=== PATIENT | female | born 1940 | race African-American/Black ===

== ENCOUNTER 2018-06-04 20:27 | Inpatient (IN) | payer MEDICARE ==
--- NOTE | 2018-06-04 21:15 | RAD ---
RADIOGRAPH CHEST 1 VIEW: 06/04/18 HISTORY: 77-year-old female with cough. FINDINGS: There are no air space densities, pulmonary edema, pneumothorax, or cardiomegaly. The lateral costop hrenic angles are sharp. IMPRESSION: No acute cardiopulmonary findings. david [] POS: MANNY
[2018-06-04 21:21] LABS: Bilirubin Negative (Negative); Blood, Urine Negative (Negative); Clarity CLEAR (Clear); Glucose, Urine (Dipstick) Negative (Negative); Leukocyte Small (Negative); Nitrite Negative (Negative); Protein, Urine (Dipstick) 100 mg/dL (Neg-Trace); Specific Gravity, Urine 1.019 (1.002-1.036); pH, Urine 6.5 (5.0-9.0)
[2018-06-04 21:24] LABS: Bacteria/HPF None Seen HPF (None Seen); RBC/HPF 0-3 HPF (0-3); WBC/HPF 0-3 HPF (0-3)
[2018-06-04 21:26] LABS: Pathc Cast-AUWi Flag 3.48 (0-2.49)
[2018-06-04 21:37] LABS: #Eosinphils 0.1 thou/uL (0.0-0.7); #Lymphocytes 1.1 thou/uL (1.20-3.40); #Monocytes 0.4 thou/uL (0.11-0.59); #Neutrophils 4.9 thou/uL (1.40-6.50); %Basophils 0.4 % (0.0-1.0); %Eosinophils 1.4 % (0.0-10.0); %Lymphocytes 16.9 % (21.0-51.0); %Monocytes 6.7 % (0.0-10.0); %Neutrophils 74.6 % (42.0-75.0); Hemoglobin 10.4 g/dL (12.0-16.0); Mean Corpuscular HGB CONC 32.5 g/dL (32.0-36.0); Mean Corpuscular Hemoglobin 31.1 pg (27.0-31.0); Mean Corpuscular Volume 95.7 fL (78.0-98.0); Mean Platelet Volume 10.8 fL (7.4-10.4); Platelet Count 168 thou/uL (130-400); RBC Distribution Width 12.6 % (11.5-14.5); Red Blood Cell (RBC) Count 3.33 mill/uL (4.20-5.40); White Blood Cell (WBC) Count 6.5 thou/uL (4.8-10.8)
[2018-06-04 21:59] LABS: INR-International Normal Ratio 1.2; PTT 28.9 SEC (22.9-36.1); Prothrombin Time 14.9 SEC (12.0-14.7)
[2018-06-04 22:00] LABS: ALT (SGPT) 8 U/L (8-55); AST (SGOT) 12 U/L (5-34); Albumin 3.5 g/dL (3.4-4.8); Alkaline Phosphatase 69 U/L (40-150); Anion Gap 15 mmol/L (10-20); BUN (Urea Nitrogen) 23 mg/dL (9.8-20.1); Bilirubin, Total 0.5 mg/dL (0.2-1.2); Calc. Creatinine Clearance 0 mL/min (70-130); Calcium 9.2 mg/dL (7.8-10.44); Carbon Dioxide 23 mmol/L (23-31); Chloride 114 mmol/L (98-107); Estimated GFR-MDRD 64; Globulin 2.8 g/dL (2.4-3.5); Glucose 124 mg/dL (83-110); Potassium 3.7 mmol/L (3.5-5.1); Protein, Total 6.3 g/dL (6.0-8.3); Sodium 148 mmol/L (136-145)
--- NOTE | 2018-06-04 22:08 | CT ---
CT BRAIN NONCONTRAST: DATE: 06/07/15 at 9:37 p.m. HISTORY: 77-year-old female with altered mental status. Dr. Silverman reported the subdural hematomas by telephone to Dr. Hernandez at 9:42 p.m. on 06/04/18. COMPARISON: None available. FINDINGS: There are bilateral supratentorial frontotemporoparietal subdural hematomas. The one on the right is slightly larger than the left. At the level of the bodies of the lateral ventricles, the transverse d iameter of the right subdural hematoma laterally is approximately 1.2 cm (12 mm). At the same level, the diameter of the left subdural hematoma is 0.9 cm (9 mm). There is mixed attenuation of the subdur al hematomas, with acute, hyperdense components, mostly in dependent, posterior portions of the fluid collections; and intermediate attenuation in the rest of the fluid collections. They cause a predomi nantly balanced compression of the bilateral cerebral hemispheres, right slightly greater than left. There is minimal right to left midline shift of approximately 0.2 cm (2 mm). No obstructive hydroceph alus. No acute intra-axial hemorrhage. No calvarial fracture. IMPRESSION: Bilateral moderate sized supratentorial subdural hematomas, acute on subacute. Code CR JN R POS: MANNY
[2018-06-04] MEDS ORDERED: Sodium Chloride 0.9% 1,000 ML IV SCH (23:15)
[2018-06-05] MEDS ORDERED: Acetaminophen 325 MG TAB PO PRN (00:32)
[2018-06-05] MEDS ORDERED: Labetalol HCl 100 MG/20 ML VIAL SLOW IVP PRN (00:32)
[2018-06-05 00:45] VITALS: BMI 19.4
--- NOTE | 2018-06-05 04:22 | HP ---
This is a 30-minutes initial patient evaluation of which greater than 50% of the exam was spent in counseling and coordinating the patient's care. Remainder of the exam was spent in reviewing patient's medical records and review of appropriate imaging studies. CHIEF COMPLAINT: Altered mental status after choking with right greater than left acute on chronic subdural hematoma. HISTORY OF PRESENT ILLNESS: Ms. Pretty is a pleasant 77-year-old female, who has significant progressive dementia. She is unable to provide any of her history and her daughter at bedside provides all the history. Apparently, the patient lives at home with the daughter and they were at dinner when the patient had a sudden choking attack. She then had decreased level of consciousness and some confusion, and EMS was called. Upon presentation to the emergency room, a head CT was performed given the patient's altered mental status and she was noted to have right greater than left bilateral acute on chronic subdural hematoma without significant midline shift or mass effect. The patient has hypertension at baseline and is on medications for this, but does not take any blood thinners. She uses a walker at home and the family denies any recent falls. PHYSICAL EXAMINATION: The patient is awake and alert. She is mostly nonverbal and says yes when asked if her name is Queen Maria De Jesus. Otherwise, she does not tell me the date or where she is and minimally follows commands, though moves all extremities spontaneously and equally. GCS currently is 14, given the patient's dementia. Otherwise, she appears to be at her neurologic baseline according to her family. Pupils are equal, round, and reactive bilaterally. IMPRESSION AND DIAGNOSES: Altered mental status with progressive dementia and acute on chronic bilateral subdural hematomas. PLAN: I have discussed the patient's case and imaging with Dr. Damon. At this time, I have discussed the possibility of satish hole placement at a later date as the patient's acute component of the clot liquifies, although it does not appear to be causing any type of neurologic deficit. Therefore, we will monitor the patient with a repeat head CT in the morning. I have asked that her systolic blood pressure remain less than 150 and that she be n.p.o. Again discussing the possibility of satish hole placement with the daughter, she is very reluctant to do so and has even elected to make the patient DNR/DNI. The patient's daughter is Joana Lovell and she again is patient's healthcare power of sports attorney and has deemed that the patient will be a DNR/DNI. Again, we will continue to follow the patient however and I have asked for q.2 hours neuro checks. We will follow up on a repeat head CT and the patient's neurologic exam. Please call with any changes in patient's neurologic status. Job ID: [id number] MTDD
[2018-06-05 05:09] LABS: #Eosinphils 0.1 thou/uL (0.0-0.7); #Lymphocytes 1.5 thou/uL (1.20-3.40); #Monocytes 0.7 thou/uL (0.11-0.59); #Neutrophils 5.6 thou/uL (1.40-6.50); %Basophils 0.3 % (0.0-1.0); %Eosinophils 1.4 % (0.0-10.0); %Lymphocytes 19.2 % (21.0-51.0); %Monocytes 8.6 % (0.0-10.0); %Neutrophils 70.5 % (42.0-75.0); Hemoglobin 10.4 g/dL (12.0-16.0); Mean Corpuscular HGB CONC 31.7 g/dL (32.0-36.0); Mean Corpuscular Hemoglobin 30.6 pg (27.0-31.0); Mean Corpuscular Volume 96.5 fL (78.0-98.0); Mean Platelet Volume 10.9 fL (7.4-10.4); Platelet Count 158 thou/uL (130-400); RBC Distribution Width 12.6 % (11.5-14.5); Red Blood Cell (RBC) Count 3.41 mill/uL (4.20-5.40)
[2018-06-05 05:37] LABS: Anion Gap 14 mmol/L (10-20); BUN (Urea Nitrogen) 19 mg/dL (9.8-20.1); Calc. Creatinine Clearance 47 mL/min (70-130); Calcium 9.1 mg/dL (7.8-10.44); Carbon Dioxide 21 mmol/L (23-31); Chloride 113 mmol/L (98-107); Estimated GFR-MDRD 78; Glucose 98 mg/dL (83-110); Potassium 3.7 mmol/L (3.5-5.1); Sodium 144 mmol/L (136-145)
--- NOTE | 2018-06-05 08:29 | CT ---
PRELIMINARY REPORT/[facility]/EMERGENTY AFTER-HOURS PROCEDURE CT Head Without Contrast EXAM DATE/TIME: 06/05/2018 4:58 AM CLINICAL HISTORY: 77 years old, female; Condition or disease; Other: Sdh; Patient HX: F/u bilateral acute on chronic sd h TECHNIQUE: Axial computed tomography images of the head/brain without contrast. COMPARISON: CT Brain WO Con 06/04/2018 9:36 PM FINDINGS: Brain: There are bifrontal subdural hemorrhages measuring 17 mm on the RIGHT and 13 mm on the LEFT wi th layering hemorrhage in various stages of chronicity consistent with acute on chronic subdural hemo rrhage, essentially unchanged from prior. Ventricles: Normal. No ventriculomegaly. Bones/joints: Normal. No acute fracture. Sinuses: Normal as visualized. No acute sinusitis. Mastoid air cells: Normal as visualized. No mastoid effusion. Soft tissues: Normal. IMPRESSION: Acute on chronic subdural hemorrhage, essentially unchanged from prior Thank you for allowing us to participate in the care of your patient. Dictated and Authenticated by: Daniel Dias MD 06/05/2018 5:08 AM Central Time ([place] & [place]) FINAL REPORT HEAD CT WITHOUT CONTRAST: Date: 06/05/18 COMPARISON: 06/04/18. HISTORY: Acute on chronic subdural hematoma. FINDINGS/IMPRESSION: This report is in agreement with the preliminary report by Baljit. Essentially stable acute on chronic bilateral subdural hematomas. No significant midline shift. POS: MANNY
[2018-06-05] MEDS ORDERED: Pantoprazole 40 MG VIAL IVP SCH (09:00)
[2018-06-05 10:55] VITALS: BP 159/71; TEMP 97.4
--- NOTE | 2018-06-05 12:24 | PRG ---
DATE OF SERVICE: 06/05/2018 Ms. Pretty is a 77-year-old woman who has dementia. She was found to have bilateral multi-aged subdural hematomas. She intermittently will follow commands, remains alert. She appears to have again progressive dementia. The family wishes no intervention. I think, it is reasonable. Job ID: [id number]
--- NOTE | 2018-06-07 10:58 | EKG ---
Test Reason : HYPOTENSION Blood Pressure : / mmHG Vent. Rate : 080 BPM Atrial Rate : 080 BPM P-R Int : 122 ms QRS Dur : 076 ms QT Int : 408 ms P-R-T Axes : 060 065 025 degrees QTc Int : 470 ms Normal sinus rhythm Normal ECG Confirmed by TAMMI HOUSTON DO ([id number]), design editor RANJAN WOODS ([id number]) on 06/07/2018 10:57:57 AM Referred By: Confirmed By:TAMMI HOUSTON DO
== END 2018-06-05 12:30 | disposition home or self-care (01) | DRG 66 ==
LOC: ERS 20:27 → IMCU/EMU 22:31
PROVIDERS: ADMIT Surgery; ATTEND Surgery
DX: I62.01 Nontraumatic acute subdural hemorrhage (principal); I62.03 Nontraumatic chronic subdural hemorrhage; F03.90 Unspecified dementia, unspecified severity, without behavioral disturbance, psychotic disturbance, mood disturbance, and anxiety; I95.9 Hypotension, unspecified
CPT/HCPCS: 36415; 51701; 70450; 71045; 80048; 80053; 81003; 81015; 83605; 84484; 85025; 85610; 85730; 93005; 96360; 96361

== ENCOUNTER 2019-02-27 16:55 | Inpatient (IN) | payer MEDICARE ==
[2019-02-27] MEDS ORDERED: Lorazepam 2 MG/ML VIAL ONE (17:24)
[2019-02-27 17:32] LABS: #Basophils 0.1 thou/uL (0.0-0.2); #Eosinphils 0.1 thou/uL (0.0-0.7); #Lymphocytes 1.7 thou/uL (1.20-3.40); #Monocytes 0.4 thou/uL (0.11-0.59); #Neutrophils 3.9 thou/uL (1.40-6.50); %Basophils 1.1 % (0.0-1.0); %Eosinophils 1.2 % (0.0-10.0); %Lymphocytes 27.9 % (21.0-51.0); %Neutrophils 62.9 % (42.0-75.0); Hemoglobin 11.3 g/dL (12.0-16.0); Mean Corpuscular HGB CONC 32.2 g/dL (32.0-36.0); Mean Corpuscular Hemoglobin 32.7 pg (27.0-31.0); Mean Platelet Volume 12.2 fL (7.4-10.4); Platelet Count 124 thou/uL (130-400); RBC Distribution Width 12.7 % (11.5-14.5); Red Blood Cell (RBC) Count 3.45 mill/uL (4.20-5.40); White Blood Cell (WBC) Count 6.2 thou/uL (4.8-10.8)
--- NOTE | 2019-02-27 17:34 | RAD ---
Chest one view HISTORY: Altered mental state. COMPARISON: 06/04/2018. FINDINGS: Cardiac silhouette is magnified by projection. Pulmonary vasculature is unremarkable. Media stinum is midline. No lobar consolidation or evidence of pneumothorax. IMPRESSION: No active cardiopulmonary abnormalities are demonstrated.
[2019-02-27 17:58] LABS: ALT (SGPT) 28 U/L (8-55); AST (SGOT) 18 U/L (5-34); Albumin 3.7 g/dL (3.4-4.8); Alkaline Phosphatase 59 U/L (40-110); Anion Gap 10 mmol/L (10-20); BUN (Urea Nitrogen) 20 mg/dL (9.8-20.1); Bilirubin, Total 0.4 mg/dL (0.2-1.2); CK (CPK) 47 U/L (29-168); Calc. Creatinine Clearance 0 mL/min (70-130); Calcium 9.5 mg/dL (7.8-10.44); Carbon Dioxide 31 mmol/L (23-31); Chloride 125 mmol/L (98-107); Estimated GFR-MDRD 72; Globulin 3.2 g/dL (2.4-3.5); Glucose 61 mg/dL (83-110); Lipase 49 U/L (8-78); Potassium 3.8 mmol/L (3.5-5.1); Protein, Total 6.9 g/dL (6.0-8.3); Sodium 162 mmol/L (136-145)
--- NOTE | 2019-02-27 17:58 | CT ---
Exam: Brain CT without IV contrast: HISTORY: Altered mental status COMPARISON: 06/05/2018 FINDINGS: There is atrophy and chronic white matter ischemic changes. Moderate ventricular dilatation, generali zed. No focal mass or midline shift. No intra or extra-axial hemorrhage. IMPRESSION: Atrophy and chronic white matter ischemic changes and some generalized ventricular dilatation. No mas s or bleed or other acute process.
[2019-02-27 19:24] LABS: Bacteria/HPF None Seen HPF (None Seen); Bilirubin Negative (Negative); Blood, Urine 1+ (Negative); Clarity Clear (Clear); Glucose, Urine (Dipstick) Normal (Negative); Leukocyte Negative Leu/uL (Negative); Nitrite Negative (Negative); Protein, Urine (Dipstick) 20 mg/dL (Neg-Trace); Squamous Epithelial 0-3 HPF (0-3)
[2019-02-27] MEDS ORDERED: Acetaminophen 325 MG TAB PO PRN (19:35)
[2019-02-27] MEDS: Sodium Chloride 0.45% 1,000 ML IV SCH (20:20)
[2019-02-27] MEDS: Famotidine 20 MG TAB PO SCH (20:20)
--- NOTE | 2019-02-27 20:51 | PDOC.EVN ---
Event Note - Event Note Event Note: [id number]
--- NOTE | 2019-02-27 20:53 | HP ---
CHIEF COMPLAINT: Abnormal labs. HISTORY OF PRESENT ILLNESS: Ms. Pretty is a 78-year-old female with past medical history of dementia, tremors from medications ?, presents to the emergency room, referred from her primary care physician's office after her regular checkup with labs, found that the patient had elevated sodium. In the emergency room, the patient had a sodium level of 164. As per daughter, the patient drinks enough fluids ? She also is . The patient is a poor historian. Most of the history I am getting is from the patient's family. No fever. No chills. No abdominal pain. No nausea. No vomiting. No diarrhea. The patient is being admitted to the hospital for further management. PAST MEDICAL HISTORY: 1. Dementia. 2. Medication-induced tremors. PAST SURGICAL HISTORY: No surgical history reported. SOCIAL HISTORY: No history of alcohol drinking, drug abuse or smoking. FAMILY HISTORY: Reviewed and noncontributory. ALLERGIES: NO KNOWN ALLERGIES. HOME MEDICATIONS: Please see home medication reconciliation form for updated medications. REVIEW OF SYSTEMS: Unable to obtain. The patient is a poor historian. PHYSICAL EXAMINATION: GENERAL: The patient is awake, alert. VITAL SIGNS: Blood pressure is 161/83, pulse is 63, heart rate is 14, temperature 98.3. HEAD AND NECK: Normocephalic, atraumatic. NECK: Supple. No JVD. CHEST: Fair bilateral air entry. HEART: S1, S2. Regular. ABDOMEN: Soft, nontender. Bowel sounds are present. NEUROLOGIC: Awake, alert, moving the extremities, having resting tremors. PSYCH: Unable to assess. EXTREMITIES: No clubbing, cyanosis. LABORATORY DATA: WBC count 6.2, hemoglobin 11.3, platelets 124. Sodium 162, potassium 3.8, BUN is 20, creatinine 0.9, and glucose is 61. ALT, AST, normal. Alkaline phosphatase, normal. CT of the brain, no acute findings. ASSESSMENT: 1. Hypernatremia. 2. Dehydration. 3. Dementia. 4. Tremors, medication induced, chronic. PLAN: 1. Admit. 2. IV fluid hydration. 3. Monitor serum sodium. 4. Reconcile home medications. 5. DVT prophylaxis as appropriate. 6. Expected length of stay 2 midnights or more. Job ID: [id number]
[2019-02-27 23:58] LABS: Anion Gap 10 mmol/L (10-20); BUN (Urea Nitrogen) 18 mg/dL (9.8-20.1); Calc. Creatinine Clearance 42 mL/min (70-130); Carbon Dioxide 27 mmol/L (23-31); Chloride 123 mmol/L (98-107); Estimated GFR-MDRD 83; Glucose 74 mg/dL (83-110); Potassium 3.4 mmol/L (3.5-5.1); Sodium 157 mmol/L (136-145)
[2019-02-28] MEDS: Sodium Chloride 0.45% 1,000 ML IV SCH (05:41)
[2019-02-28 07:12] LABS: ALT (SGPT) 23 U/L (8-55); AST (SGOT) 15 U/L (5-34); Albumin 3.2 g/dL (3.4-4.8); Alkaline Phosphatase 50 U/L (40-110); Anion Gap 9 mmol/L (10-20); BUN (Urea Nitrogen) 16 mg/dL (9.8-20.1); Bilirubin, Total 0.5 mg/dL (0.2-1.2); Calc. Creatinine Clearance 45 mL/min (70-130); Carbon Dioxide 30 mmol/L (23-31); Chloride 121 mmol/L (98-107); Estimated GFR-MDRD 89; Globulin 2.7 g/dL (2.4-3.5); Glucose 80 mg/dL (83-110); Potassium 3.5 mmol/L (3.5-5.1); Protein, Total 5.9 g/dL (6.0-8.3); Sodium 156 mmol/L (136-145)
[2019-02-28 08:30] LABS: #Eosinphils 0.1 thou/uL (0.0-0.7); #Lymphocytes 1.6 thou/uL (1.20-3.40); #Monocytes 0.4 thou/uL (0.11-0.59); #Neutrophils 2.9 thou/uL (1.40-6.50); %Basophils 0.7 % (0.0-1.0); %Eosinophils 1.5 % (0.0-10.0); %Lymphocytes 32.5 % (21.0-51.0); %Neutrophils 57.4 % (42.0-75.0); Hemoglobin 10.3 g/dL (12.0-16.0); MDiff Complete? YES; Macrocytosis SLIGHT = 6-15 cells (100X) (0-5/hpf); Mean Corpuscular HGB CONC 31.5 g/dL (32.0-36.0); Mean Corpuscular Hemoglobin 31.7 pg (27.0-31.0); Mean Platelet Volume 12.2 fL (7.4-10.4); Platelet Count 100 thou/uL (130-400); Platelet Morphology Comment Appears Decreased; Poikilocytosis SLIGHT = 6-15 cells (100X) (0-5/hpf); RBC Distribution Width 12.7 % (11.5-14.5); Red Blood Cell (RBC) Count 3.25 mill/uL (4.20-5.40)
[2019-02-28] MEDS: Famotidine 20 MG TAB PO SCH ×2 (09:37→20:03)
[2019-02-28] MEDS ORDERED: Sodium Chloride 0.45% 1,000 ML IV SCH (10:21)
[2019-02-28 11:19] LABS: Anion Gap 11 mmol/L (10-20); BUN (Urea Nitrogen) 14 mg/dL (9.8-20.1); Calc. Creatinine Clearance 49 mL/min (70-130); Calcium 8.6 mg/dL (7.8-10.44); Carbon Dioxide 22 mmol/L (23-31); Chloride 120 mmol/L (98-107); Estimated GFR-MDRD Greater than 90; Glucose 72 mg/dL (83-110); Potassium 3.8 mmol/L (3.5-5.1); Sodium 149 mmol/L (136-145)
--- NOTE | 2019-02-28 19:25 | PDOC.HOSPP ---
- Subjective Encounter Date: 02/28/19 Encounter Time: 11:40 Subjective: pt up in bed eating daughter at bedside - Objective Vital Signs & Weight: Vital Signs (12 hours) Temp Pulse Resp BP BP Pulse Ox 02/28/19 16:45 97.5 F L 62 20 154/76 H 100 02/28/19 12:00 98.1 F 57 L 18 153/87 H 02/28/19 07:31 97.4 F L 55 L 18 151/77 H 100 Weight Admit Weight 101 lb 12.8 oz Weight 101 lb 12.9 oz Result Diagrams: 02/28/19 06:33 02/28/19 10:42 Hospitalist ROS - Review of Systems Respiratory: denies: cough, dry, shortness of breath, hemoptysis, SOB with excertion, pleuritic pain, sputum, wheezing, other Cardiovascular: denies: chest pain, palpitations, orthopnea, paroxysmal noc. dyspnea, edema, light headedness, other Gastrointestinal: denies: nausea, vomiting, abdominal pain, diarrhea, constipation, melena, hematochezia, other - Medication Medications: Active Medications Generic Name Dose Route Start Last Admin Trade Name Freq PRN Reason Stop Dose Admin Famotidine 20 mg 02/27/19 21:00 02/28/19 09:37 Pepcid PO 20 mg BID ERIS Administration - Exam Neck: negative: supple, symmetric, no JVD, no thyromegaly, no lymphadenopathy, no carotid bruit, JVD Heart: negative: RRR, no murmur, no gallops, no rubs, normal peripheral pulses, irregular, diminshed peripheral pulses, murmur present, II/IV, III/IV Respiratory: negative: CTAB, no wheezes, no rales, no ronchi, normal chest expansion, no tachypnea, normal percussion, rales, rhonchi, tachypneic, wheezes Hosp A/P (1) Hypernatremia Code(s): E87.0 - HYPEROSMOLALITY AND HYPERNATREMIA Status: Acute (2) Dementia Code(s): F03.90 - UNSPECIFIED DEMENTIA WITHOUT BEHAVIORAL DISTURBANCE Status: Acute (3) Tremor Code(s): R25.1 - TREMOR, UNSPECIFIED Status: Acute - Plan very high serum osmolarity, and urine osmolarity. will stop fluids and consult nephro. According to daughter she has been eating and drinking fluids. hypernatremia found on labs.
[2019-02-28] MEDS: traZODone HCl 50 MG TAB PO SCH (20:03)
[2019-03-01] MEDS ORDERED: Desmopressin Acetate 4 mcg/ml (1ml Chg) 10ml Vial SC SCH (09:00)
[2019-03-01] MEDS: Famotidine 20 MG TAB PO SCH ×2 (09:29→21:02)
[2019-03-01 12:25] LABS: Anion Gap 9 mmol/L (10-20); BUN (Urea Nitrogen) 12 mg/dL (9.8-20.1); Calc. Creatinine Clearance 46 mL/min (70-130); Calcium 8.9 mg/dL (7.8-10.44); Carbon Dioxide 26 mmol/L (23-31); Chloride 115 mmol/L (98-107); Estimated GFR-MDRD Greater than 90; Glucose 86 mg/dL (83-110); Potassium 3.7 mmol/L (3.5-5.1); Sodium 146 mmol/L (136-145)
--- NOTE | 2019-03-01 12:27 | CON ---
DATE OF CONSULTATION: HISTORY OF PRESENT ILLNESS: Ms. Pretty is a 78-year-old black female, who was admitted due to hypernatremia. She was seen by her PCP and due to complaints of tremor, she was sent to the ER. In the ER, she was noted with a serum sodium of 164. The patient has a history of dementia and for that reason she is a poor historian. On close questioning the grandson, the grandma takes adequate p.o. at home. Today, she is not drinking or eating well. We are here to evaluate her hypernatremia. Please note, she was given free water, which improved her serum sodium from 164 to most recent value of 149 yesterday. REVIEW OF SYSTEMS: Not obtainable due to the patient having dementia and is a poor historian. MEDICATIONS: Currently on 1. Famotidine 20 mg p.o. b.i.d. 2. Trazodone 100 mg at bedtime. PAST MEDICAL HISTORY: 1. History of dementia from Alzheimer disease. 2. History of chronic bilateral subdural hematoma, also history of hypertension. PAST SURGICAL HISTORY: No significant surgeries. SOCIAL HISTORY: The patient lives in [place]. Lives with her daughter. She has one child. 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 Education, high school. No history of smoking. No alcohol intake. No IV drug abuse. ALLERGIES: NO KNOWN DRUG ALLERGIES. TRAUMA: None. IMMUNIZATION: Up-to-date. HOSPITALIZATIONS: Please see past medical history. FAMILY HISTORY: History of ESRD. PHYSICAL EXAMINATION: VITAL SIGNS: Blood pressure is 150/74 with a heart rate of 53, respiratory rate 18, temperature 97.5, pulse ox 100%. GENERAL: Awake, alert, comfortable, have some verbal paucity noted. SKIN: Decreased turgor. HEENT: Slightly pale conjunctivae. Anicteric sclerae. NECK: No neck mass. No carotid bruits. No JVD. CHEST: No deformities. LUNGS: Clear breath sounds. HEART: Normal sinus rhythm. No murmur. No gallops. No rubs. ABDOMEN: Globular, soft, nontender, no masses. EXTREMITIES: No edema, no deformities. NEUROLOGIC: Patient has a verbal paucity. Moving all extremities. Confused, not in overt distress. LABORATORY DATA: February 28, 2019, white count 5, hemoglobin 10.3. February 28, 2019, sodium 149, potassium 3.8, chloride 120, carbon dioxide 22, BUN is noted at 14 with a creatinine 0.7, calcium 8.6. February 27, 2019, sodium was 157. , sodium was 160. February 18, 2019, serum sodium was 152. June 05, 2018, serum sodium was 144. February 28, 2019, serum osmolality 325. February 28, 2019, urine sodium greater than 300. Urine osmolality was 1076. ASSESSMENT AND PLAN: 1. Hypernatremia-this may simply reflect free water deficit. Please note, her urine osmolality is noted to be greater than 600, suggesting there may be some prerenal component or free water deficit. However, there may still exist in theory possibility of a partial diabetes insipidus with this patient. For this reason, I have encouraged the patient and her grandson to increase her fluid intake. At the same time, DDAVP 2 mcg subcu was given. Repeat urine serum osmolality will be done as well as urinalysis. Serum sodium has also been ordered. free water deficit with this patient. However, we could not rule out the possibility of a partial diabetes insipidus with this patient. She does have history of bilateral subdural hematoma have on brain imaging some more abnormalities. Due to her dementia, I feel that a conservative management is most appropriate with this patient. We will be rechecking another basic metabolic profile in a.m. Job ID: [id number]
--- NOTE | 2019-03-01 12:51 | PDOC.HOSPP ---
- Subjective Encounter Date: 03/01/19 Encounter Time: 10:30 Subjective: pt up in bed alert but not oriented per family she is at baseline. - Objective Vital Signs & Weight: Vital Signs (12 hours) Temp Pulse Resp BP Pulse Ox 03/01/19 08:00 97.5 F L 53 L 18 150/74 H 100 Weight Admit Weight 101 lb 12.8 oz Weight 101 lb 12.9 oz Result Diagrams: 02/28/19 06:33 03/01/19 11:50 Hospitalist ROS - Review of Systems Other: unable to obtain - Medication Medications: Active Medications Generic Name Dose Route Start Last Admin Trade Name Freq PRN Reason Stop Dose Admin Famotidine 20 mg 02/27/19 21:00 03/01/19 09:29 Pepcid PO 20 mg BID ERIS Administration Trazodone HCl 100 mg 02/28/19 21:00 02/28/19 20:03 Desyrel PO 100 mg HS ERIS Administration - Exam Neck: negative: supple, symmetric, no JVD, no thyromegaly, no lymphadenopathy, no carotid bruit, JVD Heart: negative: RRR, no murmur, no gallops, no rubs, normal peripheral pulses, irregular, diminshed peripheral pulses, murmur present, II/IV, III/IV Respiratory: negative: CTAB, no wheezes, no rales, no ronchi, normal chest expansion, no tachypnea, normal percussion, rales, rhonchi, tachypneic, wheezes Gastrointestinal: negative: soft, non-tender, non-distended, normal bowel sounds , no palpable masses, no hepatomegaly, no splenomegaly, no bruit, no guarding, no rigidity, tender to palpation, distended, diminished bowl sounds, voluntary guarding Hosp A/P (1) Hypernatremia Code(s): E87.0 - HYPEROSMOLALITY AND HYPERNATREMIA Status: Acute (2) Dementia Code(s): F03.90 - UNSPECIFIED DEMENTIA WITHOUT BEHAVIORAL DISTURBANCE Status: Acute (3) Tremor Code(s): R25.1 - TREMOR, UNSPECIFIED Status: Acute - Plan very high serum osmolarity, and urine osmolarity. will stop fluids and consult nephro. According to daughter she has been eating and drinking fluids. hypernatremia found on labs. 03/01 Appreciate nephrology's consult. possible DI per nephrology. was given ddvp will monitor. pt eating and drinking well.
[2019-03-01 15:48] LABS: Bacteria/HPF None Seen HPF (None Seen); Bilirubin Negative (Negative); Blood, Urine 2+ (Negative); Clarity Clear (Clear); Glucose, Urine (Dipstick) Normal (Negative); Leukocyte Negative Leu/uL (Negative); Nitrite Negative (Negative); Protein, Urine (Dipstick) 50 mg/dL (Neg-Trace); RBC/HPF 21-50 HPF (0-3); Squamous Epithelial 0-3 HPF (0-3); Urobilinogen Normal mg/dL (Less than 2)
[2019-03-01] MEDS: traZODone HCl 50 MG TAB PO SCH (21:02)
[2019-03-02 07:12] LABS: Anion Gap 7 mmol/L (10-20); BUN (Urea Nitrogen) 13 mg/dL (9.8-20.1); Calc. Creatinine Clearance 43 mL/min (70-130); Calcium 8.6 mg/dL (7.8-10.44); Carbon Dioxide 27 mmol/L (23-31); Chloride 111 mmol/L (98-107); Estimated GFR-MDRD 85; Glucose 75 mg/dL (83-110); Potassium 3.3 mmol/L (3.5-5.1); Sodium 142 mmol/L (136-145)
[2019-03-02] MEDS: Famotidine 20 MG TAB PO SCH ×2 (08:37→20:34)
[2019-03-02] MEDS ORDERED: Potassium Chloride 20 MEQ TAB PO SCH ×2 (09:45→10:15)
--- NOTE | 2019-03-02 10:02 | PRG ---
DATE OF SERVICE: 03/02/2019 SUBJECTIVE: Ms. Pretty is a 78-year-old black female, who was seen for hypernatremia. The etiology is unclear, although it may simply reflect a free water deficit. She may also have a partial diabetes insipidus. She was given a one time dose of vasopressin. This improved the serum sodium also from a value of 149 to a most recent value of 142. I did encourage the patient and her daughter for her to increase her free water intake at home. No other complaints today. OBJECTIVE: VITAL SIGNS: Blood pressure is 149/78, heart rate 62, respiratory rate 18, temperature 97.5, pulse ox 100%. GENERAL: Awake, alert, comfortable, not in distress. SKIN: Adequate turgor. HEENT: Pinkish conjunctivae. Anicteric sclerae. NECK: No neck mass. No carotid bruits. No JVD. CHEST: No deformities. LUNGS: Clear breath sounds. HEART: Normal sinus rhythm. No murmur. No gallops. No rubs. ABDOMEN: Globular, soft, nontender. No masses. EXTREMITIES: No edema. No deformities. MEDICATIONS: Medications of March 02, 2019, reviewed. LABORATORY DATA: Laboratories of March 02, 2019; sodium 142, potassium 3.3, chloride 111, carbon dioxide 27, BUN 13, creatinine 0.79, calcium 8.6. ASSESSMENT AND PLAN: 1. Hypernatremia-secondary to free water deficit as well as a possibility of a partial diabetes insipidus. Management supportive. I would recommend increased free water intake. My concern is that eventually this patient due to her underlying dementia, may have decreased p.o. intake. When that time comes, she may need to consider PEG tube placement. 2. Dementia/Alzheimer disease. Supportive care. 3. Mild hypokalemia. KCl 40 mEq one tablet now. Job ID: [id number]
--- NOTE | 2019-03-02 14:47 | PDOC.HOSPP ---
- Subjective Encounter Date: 03/02/19 Encounter Time: 11:15 Subjective: pt up in bed eating - Objective Vital Signs & Weight: Vital Signs (12 hours) Temp Pulse Resp BP Pulse Ox 03/02/19 08:37 100 03/02/19 08:00 97.5 F L 62 18 149/78 H 100 Weight Admit Weight 101 lb 12.8 oz Weight 101 lb 12.9 oz I&O: 03/01/19 03/02/19 03/03/19 06:59 06:59 06:59 Intake Total 210 600 Output Total 500 400 Balance -290 200 Result Diagrams: 02/28/19 06:33 03/02/19 06:41 Hospitalist ROS - Review of Systems Respiratory: denies: cough, dry, shortness of breath, hemoptysis, SOB with excertion, pleuritic pain, sputum, wheezing, other Cardiovascular: denies: chest pain, palpitations, orthopnea, paroxysmal noc. dyspnea, edema, light headedness, other Gastrointestinal: denies: nausea, vomiting, abdominal pain, diarrhea, constipation, melena, hematochezia, other - Medication Medications: Active Medications Generic Name Dose Route Start Last Admin Trade Name Freq PRN Reason Stop Dose Admin Famotidine 20 mg 02/27/19 21:00 03/02/19 08:37 Pepcid PO 20 mg BID ERIS Administration Trazodone HCl 100 mg 02/28/19 21:00 03/01/19 21:02 Desyrel PO 100 mg HS ERIS Administration - Exam ENT: normocephalic atraumatic Neck: supple, symmetric Heart: RRR, no murmur Respiratory: CTAB, no wheezes Gastrointestinal: soft, non-tender Hosp A/P (1) Hypernatremia Code(s): E87.0 - HYPEROSMOLALITY AND HYPERNATREMIA Status: Acute (2) Dementia Code(s): F03.90 - UNSPECIFIED DEMENTIA WITHOUT BEHAVIORAL DISTURBANCE Status: Acute (3) Tremor Code(s): R25.1 - TREMOR, UNSPECIFIED Status: Acute - Plan very high serum osmolarity, and urine osmolarity. will stop fluids and consult nephro. According to daughter she has been eating and drinking fluids. hypernatremia found on labs. 03/01 Appreciate nephrology's consult. possible DI per nephrology. was given ddvp will monitor. pt eating and drinking well. 03/02 will replace K, if ok with nephrology possible discharge in am. PT to see pt.
[2019-03-02] MEDS: traZODone HCl 50 MG TAB PO SCH (20:34)
[2019-03-03 06:34] LABS: Anion Gap 8 mmol/L (10-20); BUN (Urea Nitrogen) 12 mg/dL (9.8-20.1); Calc. Creatinine Clearance 42 mL/min (70-130); Calcium 8.8 mg/dL (7.8-10.44); Carbon Dioxide 26 mmol/L (23-31); Chloride 113 mmol/L (98-107); Estimated GFR-MDRD 88; Glucose 85 mg/dL (83-110); Potassium 3.4 mmol/L (3.5-5.1); Sodium 144 mmol/L (136-145)
[2019-03-03 07:18] VITALS: BP 135/71; TEMP 98
[2019-03-03] MEDS: Famotidine 20 MG TAB PO SCH (08:30)
[2019-03-03] MEDS ORDERED: Potassium Chloride 20 MEQ TAB PO SCH (09:00)
--- NOTE | 2019-03-03 09:31 | PRG ---
DATE OF SERVICE: 03/03/2019 SUBJECTIVE: Ms. Pretty is a 78-year-old black female, who was seen by the Renal Service for her hypernatremia. My feeling is that she had a free water deficit. She was also of note given one time dose of vasopressin. Serum sodium has been stable. I did have a long discussion with the patient's daughter regarding importance of free water intake for her mom. Please note, the patient has history of dementia. OBJECTIVE: VITAL SIGNS: Blood pressure 135/71, heart rate 62, respiratory rate 18, temperature 98, and pulse ox 95%. GENERAL: Noted to be awake, alert, confused, not in distress. SKIN: Adequate turgor. HEENT: She has pinkish conjunctivae. Anicteric sclerae. No neck mass. No carotid bruits. No JVD. CHEST: No deformities. LUNGS: Clear breath sounds. HEART: Normal sinus rhythm. No murmur. No gallops. No rubs. ABDOMEN: Globular, soft, nontender. No masses. EXTREMITIES: No edema. No deformities. MEDICATIONS: Medications of March 03, 2019, reviewed. LABORATORY DATA: Laboratories of March 03, 2019, sodium 144, potassium 3.4, chloride 113, carbon dioxide 26, BUN 12, creatinine 0.77, and calcium 8.8. ASSESSMENT AND PLAN: 1. Hypernatremia-much improved with free water intake. Even if this patient has a partial diabetes insipidus, the management is essentially conservative. Consider for the moment increased free water intake. 2. Hypokalemia. KCl 40 mEq one tablet x1 dose will be given. 3. Agree with current management. The patient considered to be discharged. Monitor basic metabolic profile on a regular basis as an outpatient. Job ID: [id number]
[2019-03-03 12:54] VITALS: BMI 16.0
--- NOTE | 2019-03-03 14:02 | PQF ---
QUEEN Kristal DOMINGO KARISHMA [id number] CLINICAL DOCUMENTATION IMPROVEMENT CLARIFICATION FORM: ICD-10 Updated PLEASE DO AN ADDENDUM TO THE PROGRESS NOTE WITH ANY DOCUMENTATION UPDATES OR ADDITIONS AND CARRY THROUGH TO DC SUMMARY. THANK YOU. Date: 03/03/19 ATTN: DR. Estefani BAXTER Please exercise your independent, professional judgment in responding to the clarification form. Clinical indicators are provided on the bottom of this form for your review. Please check appropriate box(s): [ ] Protein Calorie Malnutrition: [ ] Mild [ x ] Moderate [ ] Severe [ ] Other Malnutrition (please specify) __ [ ] Cachexia [ ] Other diagnosis [ ] Unable to determine In addition, please specify: Present on Admission (POA): [ x] Yes [ ] No [ ] Unable to determine CLINICAL INDICATORS - SIGNS / SYMPTOMS / LABS RD NUTRITION EVALUATION: PT WAS TRIGGERED FOR LOW BMI OF 16.9, 12.8% WEIGHT LOSS OVER THE PAST 9 MONTHS. 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) TREATMENTS: DIETARY CONSULT (RD) RECOMMENDED ENSURE ENLIVE BID TO TID ( 02/28) Moderate Malnutrition (in acute illness) Energy Intake: <75% of estimated energy requirement for > 7 days Weight Loss: 1-2%/1 week; 5%/ 1 month; 7.5%/3 months Other: mild body fat loss; mild muscle mass loss; mild fluid accumulation; Severe Malnutrition (in acute illness) Energy Intake: < 50% of estimated energy requirement for > 5 days Weight Loss: >1-2%/1 week; >5%/1 month; >7.5%/3 months Other: moderate body fat loss; moderate muscle mass loss; moderate- severe fluid accumulation; 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 LARRY (This form is maintained as a part of the permanent medical record) 2014 [employer] All Rights Reserved [email or web address] [phone] [email or web address]
--- NOTE | 2019-03-04 12:23 | DIS ---
DATE OF ADMISSION: 02/27/2019 DATE OF DISCHARGE: 03/03/2019 DISCHARGE DIAGNOSES: 1. Hypernatremia. 2. Dementia. 3. Hypokalemia. HOSPITAL COURSE: The patient is a 78-year-old female with history of dementia, who initially went for her routine blood work and was found to have a sodium level of 162. At this time, she was transferred to the hospital for further evaluation. We did do studies on her including urine osmolality, which was 1076 and her serum osmolality was 325. Also, she had a urine sodium that was greater than 300. At this time, I did consult Nephrology. The patient was given desmopressin and also aldosterone renin was checked. The patient was completely asymptomatic. Per family, she was at her baseline. The patient does have a history of dementia. According to family, she has been eating and drinking accordingly. There was some question of partial diabetes insipidus, however, it is unknown since the patient's urine osmolality was very high. The patient will follow up with Nephrology as outpatient. She did have a brain CT, which just indicated atrophy and chronic white matter ischemia. Her potassium was replaced per Nephrology's recommendation. 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 HOME MEDICATIONS: As of the following day: 1. Risperidone 0.5 b.i.d. 2. Trazodone 100 mg p.o. at bedtime. PHYSICAL EXAMINATION: VITAL SIGNS: Temperature 98.0, 62, 18, 95% on room air, 135/71. GENERAL: She is awake, alert, and oriented x3, does not appear in distress. CV: S1, S2 present. No murmurs, rubs, or gallops. ABDOMEN: Soft and nontender. Bowel sounds are present x2. Job ID: [id number]
[2019-03-06 14:09] LABS: Renin Activity Less than 0.167 ng/mL/hr (0.167-5.380)
== END 2019-03-03 15:11 | disposition home or self-care (01) | DRG 644 ==
LOC: ERS 16:55 → T4-B 18:18
PROVIDERS: ADMIT Internal Medicine; ATTEND Internal Medicine
DX: E23.2 Diabetes insipidus (principal); E44.0 Moderate protein-calorie malnutrition; Z68.1 Body mass index [BMI] 19.9 or less, adult; E86.0 Dehydration; G25.1 Drug-induced tremor; E87.6 Hypokalemia; G30.9 Alzheimer's disease, unspecified; F02.80 Dementia in other diseases classified elsewhere, unspecified severity, without behavioral disturbance, psychotic disturbance, mood disturbance, and anxiety; I10 Essential (primary) hypertension; Z79.899 Other long term (current) drug therapy
CPT/HCPCS: 36415; 70450; 71045; 80048; 80053; 81001; 81003; 81015; 82088; 82533; 82550; 83690; 83880; 83930; 83935; 84244; 84300; 84443; 84484; 85025; 93005; J2060; J2597

== ENCOUNTER 2020-02-22 11:04 | Inpatient (IN) | payer MEDICARE, OTHER ==
[~2020-02-22 11:04] MED LIST: Iopamidol-370 76% 500 ML 1 ML ONE
[2020-02-22 11:48] LABS: #Lymphocytes 1.1 thou/uL (1.20-3.40); #Monocytes 0.3 thou/uL (0.11-0.59); #Neutrophils 3.6 thou/uL (1.40-6.50); %Basophils 0.8 % (0.0-1.0); %Eosinophils 0.6 % (0.0-10.0); %Lymphocytes 21.2 % (21.0-51.0); %Monocytes 5.5 % (0.0-10.0); %Neutrophils 71.9 % (42.0-75.0); Mean Corpuscular HGB CONC 32.5 g/dL (32.0-36.0); Mean Corpuscular Hemoglobin 31.1 pg (27.0-31.0); Mean Corpuscular Volume 95.5 fL (78.0-98.0); Mean Platelet Volume 9.5 fL (7.4-10.4); Platelet Count 153 thou/uL (130-400); RBC Distribution Width 12.4 % (11.5-14.5); Red Blood Cell (RBC) Count 3.23 mill/uL (4.20-5.40)
[2020-02-22 11:55] LABS: INR-International Normal Ratio 1.1; PTT 29.7 sec (22.9-36.1); Prothrombin Time 14.3 sec (12.0-14.7)
[2020-02-22] MEDS ORDERED: cefTRIAXone\\ROCEPHIN 1 GM VIAL ONE (12:09)
[2020-02-22 12:17] LABS: ALT (SGPT) 12 U/L (8-55); AST (SGOT) 14 U/L (5-34); Albumin 2.9 g/dL (3.4-4.8); Alkaline Phosphatase 38 U/L (40-110); Anion Gap 11 mmol/L (10-20); BUN (Urea Nitrogen) 36 mg/dL (9.8-20.1); Bilirubin, Total 0.4 mg/dL (0.2-1.2); Calc. Creatinine Clearance 0 mL/min (70-130); Calcium 8.3 mg/dL (7.8-10.44); Carbon Dioxide 23 mmol/L (23-31); Chloride 103 mmol/L (98-107); Estimated GFR-MDRD 85; Globulin 1.8 g/dL (2.4-3.5); Glucose 138 mg/dL (83-110); Potassium 3.7 mmol/L (3.5-5.1); Protein, Total 4.7 g/dL (6.0-8.3); Sodium 133 mmol/L (136-145)
--- NOTE | 2020-02-22 12:25 | CT ---
CT HEAD WITHOUT CONTRAST: Date: 02/22/2020 INDICATION: Stroke protocol. Comparison made to prior head CT of 02/27/2019 and 06/30/2018. FINDINGS: There is generalized cortical atrophy and moderately severe chronic ischemic white matter changes. Th ere is ventriculomegaly which is stable from 02/27/2019, but has progressed when compared to 06/30/19 19. There is no evidence of mass or hemorrhage. There is no evidence of acute cortical infarct. IMPRESSION: Ventriculomegaly with chronic ischemic white matter changes which appear stable. No acute process. Findings relayed to the emergency department at 1113 hours. CODE CR. POS: AGOg
--- NOTE | 2020-02-22 12:38 | RAD ---
PORTABLE CHEST: Date: 02/22/2020 HISTORY: Stroke alert. COMPARISON: 02/27/2019. FINDINGS: The lungs appear well aerated and clear. No infiltrate or vascular congestion. No interval change alexy arent. Heart size within normal range. IMPRESSION: No acute process. POS: AGW
--- NOTE | 2020-02-22 12:48 | CT ---
CTA HEAD CTA NECK: Axial tomograms were obtained through the head and neck following angio protocol with multiplanar rec onstruction and 3D pros processing. INDICATION: Stroke protocol. FINDINGS: CTA HEAD: Intracranial internal carotid arteries are patent and symmetric. The cavernous ICAs are patent. Ant erior cerebral arteries are patent. Both middle cerebral arteries are patent and symmetric with no e vidence of stenosis or occlusion involving either M1 segment. Basilar artery is patent. communication with the right CUSTOMER SERVICES SUPERVISOR. Both bag valver are patent. Stenosis and irregularity in the righ t P1 segment. The dural venous sinuses appear patent. IMPRESSION: No stenosis or occlusion involving either M1 segment. CTA NECK: No stenosis at the origin of the arch vessels. Both common carotid arteries are patent and symmetric. Mild atherosclerotic change in both bulbs. No evidence of internal carotid artery stenosis. Vertebral arteries are patent and symmetric. The thyroid is diffusely abnormal. There is heterogeneous enhancement of an enlarged right lobe of t hyroid with evidence of multiple low-density nodules and some calcification. The left lobe does not show enhancement and may represent a large left lobe cystic mass. Correlate clinically and recommend followup thyroid ultrasound as indicated. There is a history of a prior ultrasound-guided thyroid b iopsy of a dominant right lobe mass in 2007. Findings related to Dr. Barnard. CODE CR POS: HILDA
[2020-02-22 12:53] LABS: Bilirubin Negative (Negative); Blood, Urine Trace (Negative); Clarity Cloudy (Clear); Glucose, Urine (Dipstick) Negative (Negative); Ketone, Urine Negative (Negative); Leukocyte Moderate (Negative); Nitrite Negative (Negative); Protein, Urine (Dipstick) Trace mg/dL (Neg-Trace); Specific Gravity, Urine 1.015 (1.005-1.030); Urobilinogen 0.2 mg/dL (Less than 2); pH, Urine 6.5 (5.0-9.0)
[2020-02-22 12:58] LABS: Bacteria/HPF 4+ HPF (None Seen); WBC/HPF Greater Than 50 HPF (0-3)
[2020-02-22] MEDS ORDERED: Ondansetron PF 4 MG/2 ML Vial IVP PRN (14:36)
[2020-02-22] MEDS ORDERED: Acetaminophen 325 MG TAB PO PRN (14:36)
[2020-02-22] MEDS ORDERED: Lactated Ringer's 1,000 ML IV SCH (17:30)
--- NOTE | 2020-02-22 20:25 | HP ---
CHIEF COMPLAINT: Altered mental status. HISTORY OF PRESENT ILLNESS: The patient is a 79-year-old female with past medical history of advanced dementia and medication-induced tremor, who was in her usual state of health until earlier this morning when she was at breakfast with her family. She reportedly stopped talking and slumped over on the table. The patient did not lose consciousness, but afterwards did not communicate with her family. She was brought to the ER by EMS and CT scan of the head without contrast in addition to CTA of the head and neck were unremarkable. At this time, the patient is alert, but does not speak. She does not have any focal deficits that are clear to examination. She is able to follow commands. Her blood pressure was on the lower side when she came in with systolic between 70 to 80. This has since responded to IV hydration. Her UA revealed presence of wbc's, leukocyte esterase, and bacteria. No evidence of fever or leukocytosis. REVIEW OF SYSTEMS: Negative except as noted in HPI. PAST MEDICAL HISTORY: As noted above. PAST SURGICAL HISTORY: No reported surgical procedures. SOCIAL HISTORY: No smoking, alcohol, or illicit drug use. The patient lives with her family. ALLERGIES: NO KNOWN DRUG ALLERGIES. PHYSICAL EXAMINATION: GENERAL: The patient is alert, but does not speak. She follows commands. HEENT: Head is normocephalic and atraumatic. Extraocular muscles are intact. NECK: Supple. CHEST: Clear to auscultation bilaterally. CARDIOVASCULAR: Reveals regular rhythm with tachycardia with no murmurs, rubs, or gallop. ABDOMEN: Soft, nontender, nondistended. NEUROLOGIC: The patient is able to move all of her extremities and her cranial nerves appear to be intact. ASSESSMENT: 1. Acute altered mental status. 2. Suspected urinary tract infection. 3. Mild hyponatremia. 4. History of advanced dementia. PLAN: The patient will be admitted to telemetry for further assessment. Her urinalysis did show some elevated wbc's count and leukocyte esterase in addition to bacteria, however, squamous epithelial cells were also elevated, which could indicate a contaminated sample. There is no fever or leukocytosis or abdominal tenderness. I do not feel strongly about UTI or sepsis. Nonetheless due to her altered mental status, I will start her on IV ceftriaxone. Initial CT scan of the head and CTA head and neck were unremarkable. However, this cannot rule out CVA. I will monitor the patient over the next 24 hours and consider repeat imaging studies of the brain tomorrow versus ordering an MRI of the brain. PT and OT evaluation. Regular diet. Lovenox for DVT prophylaxis. Job ID: [id number]
[2020-02-23 03:57] LABS: #Eosinphils 0.1 thou/uL (0.0-0.7); #Lymphocytes 1.3 thou/uL (1.20-3.40); #Monocytes 0.4 thou/uL (0.11-0.59); #Neutrophils 3.6 thou/uL (1.40-6.50); %Basophils 0.2 % (0.0-1.0); %Eosinophils 1.1 % (0.0-10.0); %Lymphocytes 23.7 % (21.0-51.0); %Monocytes 8.2 % (0.0-10.0); %Neutrophils 66.8 % (42.0-75.0); Mean Corpuscular HGB CONC 32.3 g/dL (32.0-36.0); Mean Corpuscular Volume 96.2 fL (78.0-98.0); Mean Platelet Volume 10.3 fL (7.4-10.4); Platelet Count 167 thou/uL (130-400); RBC Distribution Width 12.5 % (11.5-14.5); Red Blood Cell (RBC) Count 3.55 mill/uL (4.20-5.40); White Blood Cell (WBC) Count 5.4 thou/uL (4.8-10.8)
[2020-02-23 04:19] LABS: Anion Gap 13 mmol/L (10-20); BUN (Urea Nitrogen) 24 mg/dL (9.8-20.1); Calc. Creatinine Clearance 38 mL/min (70-130); Calcium 8.9 mg/dL (7.8-10.44); Carbon Dioxide 20 mmol/L (23-31); Chloride 106 mmol/L (98-107); Estimated GFR-MDRD Greater than 90; Glucose 60 mg/dL (83-110); Potassium 3.8 mmol/L (3.5-5.1); Sodium 135 mmol/L (136-145)
[2020-02-23] MEDS ORDERED: Dextrose 50% Abboject 50 ML SYRINGE SLOW IVP SCH (04:45)
[2020-02-23] MEDS ORDERED: Non-Formulary Item 1 EACH (Risperidone [Risperdal] 0.5 MG Tab) PO SCH ×2 (09:00→21:00)
[2020-02-23] MEDS ORDERED: risperiDONE 1 MG TAB PO SCH (09:00)
[2020-02-23 09:26] LABS: Troponin I 0.013 ng/mL (< 0.028)
[2020-02-23] MEDS: Enoxaparin Sodium 40 MG/0.4 ML SYRINGE SC SCH (11:48)
--- NOTE | 2020-02-23 12:53 | CT ---
CTA HEAD CTA NECK: Axial tomograms were obtained through the head and neck following angio protocol with multiplanar rec onstruction and 3D pros processing. INDICATION: Stroke protocol. FINDINGS: CTA HEAD: Intracranial internal carotid arteries are patent and symmetric. The cavernous ICAs are patent. Ant erior cerebral arteries are patent. Both middle cerebral arteries are patent and symmetric with no e vidence of stenosis or occlusion involving either M1 segment. Basilar artery is patent. communication with the right LOADING UNIT OPERATOR. Both engagement director are patent. Stenosis and irregularity in the righ t P1 segment. The dural venous sinuses appear patent. IMPRESSION: No stenosis or occlusion involving either M1 segment. CTA NECK: No stenosis at the origin of the arch vessels. Both common carotid arteries are patent and symmetric. Mild atherosclerotic change in both bulbs. No evidence of internal carotid artery stenosis. Vertebral arteries are patent and symmetric. The thyroid is diffusely abnormal. There is heterogeneous enhancement of an enlarged right lobe of t hyroid with evidence of multiple low-density nodules and some calcification. The left lobe does not show enhancement and may represent a large left lobe cystic mass. Correlate clinically and recommend followup thyroid ultrasound as indicated. There is a history of a prior ultrasound-guided thyroid b iopsy of a dominant right lobe mass in 2007. Findings related to Dr. Barnard. CODE CR
[2020-02-23 13:14] LABS: Troponin I Less than 0.010 ng/mL (< 0.028)
[2020-02-23] MEDS: cefTRIAXone\\ROCEPHIN 1 GM in Sodium Chloride 0.9% 100 ML IVPB SCH (13:17)
[2020-02-23 14:08] VITALS: BMI 14.8
[2020-02-23 15:37] LABS: SARS-CoV-2 MS2 Positive; SARS-CoV-2 N Gene Negative; SARS-CoV-2 S Gene Negative; SARS-CoV-2 by NAA Not Detected (NotDetected); SARS-CoV-2 orf1ab Negative
--- NOTE | 2020-02-23 16:15 | PDOC.HOSPP ---
- Subjective Encounter Date: 02/23/20 Encounter Time: 10:30 Subjective: Patient up in bed pleasantly confused daughter at bedside. - Objective Vital Signs & Weight: Vital Signs (12 hours) Temp Pulse BP Pulse Ox 02/23/20 15:34 98.5 F 02/23/20 11:29 97.7 F 02/23/20 09:57 82 168/67 H 02/23/20 08:00 100 02/23/20 07:24 97.8 F Weight Admit Weight 81 lb Weight 81 lb Most Recent Monitor Data Heart Rate from ECG 74 NIBP 115/66 NIBP BP-Mean 82 Respiration from ECG 21 SpO2 99 I&O: 02/22/20 02/23/20 02/24/20 06:59 06:59 06:59 Intake Total 60 Balance 60 Result Diagrams: 02/23/20 03:11 02/23/20 03:11 Additional Labs: Accuchecks 02/23/20 05:35 POC Glucose 170 H Hospitalist ROS - Review of Systems Other: Unable to obtain - Medication Medications: Active Medications Generic Name Dose Route Start Last Admin Trade Name Freq PRN Reason Stop Dose Admin Enoxaparin Sodium 40 mg 02/23/20 09:00 02/23/20 11:48 Enoxaparin Sodium 40 Mg/0.4 Ml Syringe SC Not Given 0900 ERIS Ceftriaxone Sodium 1 gm/ 100 mls @ 200 mls/hr 02/23/20 12:00 02/23/20 13:17 Sodium Chloride IVPB 100 mls 1200 ERIS Administration Risperidone 1 mg 02/23/20 09:00 02/23/20 13:19 Risperidone 1 Mg Tab PO 1 mg DAILY ERIS Administration - Exam Neck: negative: supple, symmetric, no JVD, no thyromegaly, no lymphadenopathy, no carotid bruit, JVD Heart: negative: RRR, no murmur, no gallops, no rubs, normal peripheral pulses, irregular, diminshed peripheral pulses, murmur present, II/IV, III/IV Respiratory: negative: CTAB, no wheezes, no rales, no ronchi, normal chest expansion, no tachypnea, normal percussion, rales, rhonchi, tachypneic, wheezes Gastrointestinal: negative: soft, non-tender, non-distended, normal bowel sounds, no palpable masses, no hepatomegaly, no splenomegaly, no bruit, no guarding, no rigidity, tender to palpation, distended, diminished bowl sounds, voluntary guarding Hosp A/P (1) Dementia Code(s): F03.90 - UNSPECIFIED DEMENTIA WITHOUT BEHAVIORAL DISTURBANCE Status: Acute (2) Metabolic encephalopathy Code(s): G93.41 - METABOLIC ENCEPHALOPATHY Status: Acute (3) UTI (urinary tract infection) Status: Acute - Plan will continue iv abx. pt is stable will move her from [facility]. she was upper tensive however currently she is normotensive. Patient's daughter states that she was going to talk with her primary care doctor to decrease the dose of Risperdal. Patient has a good appetite however has lost a significant amount of weight. Will change Risperdal to 0.5 mg in the morning and 0.5 mg in the evening.
[2020-02-23] MEDS ORDERED: traZODone HCl 50 MG TAB PO SCH (21:00)
[2020-02-23] MEDS ORDERED: Non-Formulary Item 1 EACH (Trazodone Hcl [Trazodone Hcl] 100 MG Tab) PO SCH (21:00)
[2020-02-23] MEDS ORDERED: risperiDONE 0.25 MG TAB PO SCH (21:00)
[2020-02-24] MEDS: Enoxaparin Sodium 40 MG/0.4 ML SYRINGE SC SCH (08:34)
[2020-02-24] MEDS ORDERED: risperiDONE 1 MG TAB PO SCH (09:00)
[2020-02-24 09:12] VITALS: BP 126/68; TEMP 97.7
[2020-02-24] MEDS: cefTRIAXone\\ROCEPHIN 1 GM in Sodium Chloride 0.9% 100 ML IVPB SCH (12:20)
--- NOTE | 2020-02-24 13:52 | PQF ---
CLINICAL DOCUMENTATION CLARIFICATION FORM: Dear Date: 02/24/2020 6956 Please exercise your independent, professional judgment in responding to the clarification form. Clinical indicators are provided on the bottom of this form for your review. Please check appropriate box(es): [ ] Protein Calorie Malnutrition: [ ] Mild [ x] Moderate [ ] Severe [ ] Other Malnutrition (please specify) [ ] Underweight without malnutrition [ ] Cachexia [ ] Other diagnosis [ ] Unable to determine In addition, please specify: Present on Admission (POA): [ x ] Yes [ ] No [ ] Unable to determine For continuity of documentation, please document condition throughout progress notes and discharge summary. Thank You. To be completed by CDI/Coding staff for physician review: CLINICAL INDICATORS - SIGNS / SYMPTOMS / LABS / RESULTS AND LOCATION IN MR BMI 14.8 RD assessment: Nutrition diagnosis > malnutrition related to dementia as evidenced by 20.4 % weight loss in 1 year with severe muscle wasting and fat loss to all areas of the body suggestive of malnutrition in the context of chronic illness. PN: pt has a good appetite however has lost a significant amount of weight. (Maddie) RISK FACTORS / RESULTS AND LOCATION IN MR H&P: Advanced dementia, advanced age (79), (Yossi02/21) PN: [facility]cephal[facility] ( [facility] TREATMENT / RESULTS AND LOCATION IN MR Dietary consult 02/22 Recommend Ensure Enlive BID Moderate Malnutrition (in acute illness) Energy Intake: <75% of estimated energy requirement for > 7 days Weight Loss: 1-2%/1 week; 5%/ 1 month; 7.5%/3 months Other: mild body fat loss; mild muscle mass loss; mild fluid accumulation; Severe Malnutrition (in acute illness) Energy Intake: = 50% of estimated energy requirement for = 5 days Weight Loss: >2%/1 week; >5%/1 month; >7.5%/3 months Other: moderate body fat loss; moderate muscle mass loss; moderate- severe fluid accumulation; measurably reduced charge nurse strength Moderate Malnutrition (in chronic illness) Energy Intake: <75% of estimated energy requirement for =1 month Weight Loss: 5%/1 month; 7.5%/3 months; 10%/6 months; 20%/1 year Other: mild body fat loss; mild muscle mass loss; mild fluid accumulation Severe Malnutrition (in chronic illness) Energy Intake: =75% of estimated energy requirement for =1 month Weight Loss: >5%/1 month; >7.5%/3 months; >10%/6 months; >20%/1 year Other: severe body fat loss; severe muscle mass loss; severe fluid accumulation; measurably reduced charge nurse strength Thank you! CDS Signature:Cassidy Atwood RN Phone #: [phone] Date:02/24/2020 8479 This is a permanent part of the Medical Record [facility]
--- NOTE | 2020-02-25 03:27 | DIS ---
DATE OF ADMISSION: 02/22/2020 DATE OF DISCHARGE: 02/24/2020 DISCHARGE DIAGNOSES: 1. Acute metabolic encephalopathy. 2. Dementia. 3. Urinary tract infection. HOSPITAL COURSE: The patient is a 79-year-old female, who initially presented to the hospital on 02/21 with a change in mental status. It was noted that the patient slumped over on table, however, did not lose consciousness. She has a history of dementia. She was noted to have UTI, which was E coli sensitive to everything. The patient underwent an echocardiogram with EF of 60% to 65%, everything else was okay. She also had a CTA and a CT head. CT head did not indicate any new stroke. The CTA did indicate that she has abnormal thyroid diffusely. I did tell this to the daughter and to follow up as an outpatient on this. The patient's daughter states that she does have an appointment with her primary care doctor coming up soon. Her brain CT just indicated ventriculomegaly which was chronic and appeared to be stable. No acute processes were noted. The patient's daughter was at the bedside, states that she is at baseline. PHYSICAL EXAMINATION: VITAL SIGNS: Temperature of 97.7, 75, on room air, 126/68. GENERAL: She is awake, alert, and oriented x3. Does not appear in distress. CARDIOVASCULAR: S1, S2 present. No murmurs, rubs, or gallops. HOME MEDICATIONS: 1. Potassium 20 mEq daily. 2. I changed her trazodone from 100 to 50 mg q.p.m. 3. I changed Risperdal from 1 mg in the morning to 0.5 in the morning and 0.5 in the evening. 4. I changed her hydrochlorothiazide to 25 mg daily from 50. 5. I added cefdinir 300 mg p.o. b.i.d. for her UTI. The patient will follow up with her primary care. Job ID: [id number]
== END 2020-02-24 14:05 | disposition home or self-care (01) | DRG 689 ==
LOC: ERS 11:04 → IMCU/EMU 14:17 → ONC 02-23 18:52
PROVIDERS: ADMIT Internal Medicine; ATTEND Internal Medicine
DX: N39.0 Urinary tract infection, site not specified (principal); G93.41 Metabolic encephalopathy; E87.1 Hypo-osmolality and hyponatremia; E44.0 Moderate protein-calorie malnutrition; Z68.1 Body mass index [BMI] 19.9 or less, adult; F03.90 Unspecified dementia, unspecified severity, without behavioral disturbance, psychotic disturbance, mood disturbance, and anxiety; R41.82 Altered mental status, unspecified
CPT/HCPCS: 36415; 36416; 70450; 70496; 70498; 71045; 80048; 80053; 81003; 81015; 83605; 84443; 84484; 85025; 85610; 85730; 87040; 87077; 87086; 87186; 87635; 93005; 93306; J0696; J1650; J3490; Q9967; U0003

== ENCOUNTER 2020-12-04 12:26 | Inpatient (IN) | payer MEDICARE ==
[2020-12-04 20:11] VITALS: BMI 15.5
[2020-12-06 16:57] VITALS: BP 120/70; TEMP 99.4
== END 2020-12-06 15:50 | disposition hospice, home (50) | DRG 871 ==
LOC: ERS 12:26 → ONC 16:10 → T4-A 12-05 00:40
PROVIDERS: ADMIT Family Medicine; ATTEND Internal Medicine
DX: A41.9 Sepsis, unspecified organism (principal); L89.154 Pressure ulcer of sacral region, stage 4; E43 Unspecified severe protein-calorie malnutrition; U07.1 COVID-19; Z68.1 Body mass index [BMI] 19.9 or less, adult; F03.90 Unspecified dementia, unspecified severity, without behavioral disturbance, psychotic disturbance, mood disturbance, and anxiety; I10 Essential (primary) hypertension; L89.620 Pressure ulcer of left heel, unstageable; R65.20 Severe sepsis without septic shock; E86.0 Dehydration; E87.6 Hypokalemia; D53.9 Nutritional anemia, unspecified
CPT/HCPCS: 36415; 51702; 71045; 80048; 80053; 82728; 83605; 85025; 85610; 85730; 86140; 87040; 94760; 96365; 96366; 96367; J0692; J3370; J3480; J7050; U0003; U0005